=== PATIENT | male | born 1995 | race Caucasian/White ===

== ENCOUNTER 2022-09-15 08:28 | Emergency (ER) | payer SELFPAY ==
[2022-09-15 08:29] VITALS: BP 148/77; PULSE 60; RESP 14; TEMP 36.6; O2SAT 98; BMI 30.9
[2022-09-15 08:47] VITALS: O2SAT 97
--- NOTE | 2022-09-15 08:48 | EX.ED.DYSGE1 ---
HPI History of Present Illness Chief Complaint: Chest Pain Informant: patient Narrative Narrative: Patient presents with an episode of chest pain and tingling. Patient states that last night he had a couple shots of whiskey which he normally does not have. About an hour to hour and a half later he suddenly felt tingling in his hands and face. He states he felt hot and cold in his arms. He had pain over the left side of his chest. He states he felt scared and as if he might . He is thinks he fell down. But he did not hurt himself. He then was able to get to bed. He had a little bit of that this morning but he feels better now. He states he is under a lot of stress recently. He is not sure if this causes it. He also has a history of ulcer disease and GERD but is not on current medicines and has been having a lot of reflux. He has no recent travel surgery immobilization personal family history of DVT or PE. No known risk factor for heart disease other than smoking cigarettes. He does smoke some marijuana in addition. He has had symptoms like this in the past but has not had them evaluated. PFSH PFS Medical History no medical history Home Medications hydroxyzine pamoate 25 mg capsule 50 mg PO TID PRN PRN Anxiety #30 CAPSULES 09/15/22 [Rx Last Taken Unknown] Allergy/AdvReac Type Severity Reaction Status Date / Time No Known Allergies Allergy Verified 09/15/22 08:29 Surgical History no surgical history Social History Smoking Status: Current every day smoker tobacco type: cigarettes ROS ROS ED ROS Narrative A complete review of systems was performed and is negative except as documented in the history of present illness. Some specific details below. Constitutional: No recent fevers or chills. No malaise. EYE: No discharge, visual complaints, or pain. ENT: No difficulty swallowing. No swelling. No pain. He has been having a lot of reflux symptoms recently. CV: See history of present illness. Respiratory: See history of present illness. Dyspnea was a mild component. GI: No abdominal pain. No nausea vomiting diarrhea. No blood in stool. : No frequency dysuria or hematuria. Musculoskeletal: No recent trauma. No pains. No swelling. Skin: No rash. Nondiaphoretic. Neuro: No weakness but he did report tingling in all of his extremities. He also reported a hot and cold feeling. He also reports increased anxiety and stress recently. Endocrine: No polyuria or polydipsia. EXAM Physical Exam Narrative Exam Narrative: CONSTITUTIONAL: Patient is nontoxic in appearance. The patient looks comfortable. Work of breathing looks normal. HEENT: No notable trauma. Mucous membranes moist. No sinus tenderness. No indication of pain with swallowing. EYES: No conjunctival injection. No proptosis. NECK:No JVD. No stridor. CARDIOVASCULAR: Regular rate. Regular rhythm. No notable murmur. No JVD. Minimal chest wall tenderness. RESPIRATORY: No respiratory distress. Breathing is unlabored. No wheezes. No rhonchi. No rales. No pain with a deep breath. No chest wall tenderness. GASTROINTESTINAL: Not distended. Bowel sounds are normal. No tenderness. No guarding. No rebound. No palpable mass. No bruit is heard. GENITOURINARY: No tenderness over the bladder. No CVA tenderness. MUSCULOSKELETAL: Atraumatic. No peripheral edema. No cord. No tenderness along the deep venous system. No asymmetry. No distended veins. NEUROLOGICAL: Patient is alert and appropriate. No focal deficit noted. SKIN: No noted rashes. No diaphoresis. PSYCHIATRIC: Patient is very anxious. He has a lot of trouble not speaking. He has some mild pressured speech. No hallucinations. There is a strong family history of schizophrenia but I do not get any indication that he has that. But he does seem quite anxious and admits to feeling quite anxious. Const Vital Signs: 09/15/22 08:29 09/15/22 08:37 09/15/22 08:47 Temperature 98 F Temperature Source Temporal Pulse Rate 60 Respiratory Rate 14 Respiratory Effort Normal Non-Labored Respiratory Pattern Normal Blood Pressure 148/77 H Blood Pressure Mean 100 Pulse Ox 98 97 Oxygen Delivery Method Room Air Room Air MDM MDM MDM Narrative Medical decision making narrative: My independent interpretation of the patient's single view to image chest x-ray shows no acute process. Final reading by radiology is similar. Patient CBC shows a minimal nonspecific elevation of his white count to 11.4 but is otherwise normal. Patient's electrolytes show no marked abnormalities. Patient's troponin is negative despite having symptoms over 12 hours ago. I think patient can go home. He admits to significant stress and anxiety recently. There may be a component of GERD also. He will get over the counter meds for GERD and we discussed these. I will write for some hydroxyzine to take on a as needed basis. I encouraged follow-up with primary physician and will refer him to 1. I think he is appropriate for discharge. He is PERC negative and asymptomatic. Lab Data Attestation: I reviewed the patient's lab results. Labs: Laboratory Results - last 24 hr 09/15/22 09/15/22 09:00 09:00 WBC 11.4 H RBC 5.52 Hgb 16.1 Hct 46.6 MCV 84.4 MCH 29.2 MCHC 34.5 RDW Std Deviation 36.6 RDW Coeff of Cyrus 12.0 Plt Count 312 MPV 9.4 Immature Gran % (Auto) 0.900 Neut % (Auto) 72.7 H Lymph % (Auto) 17.3 L [place] % (Auto) 7.4 Eos % (Auto) 0.8 Baso % (Auto) 0.9 Absolute Neuts (auto) 8.3 H Absolute Lymphs (auto) 1.98 Nucleated RBC % 0 Sodium 141 Potassium 4.1 Chloride 110 H Carbon Dioxide 25.0 Anion Gap 6 BUN 15 Creatinine 1.08 Estim Creat Clear Calc 110.39 Est GFR (MDRD) Af Amer 106 Est GFR (MDRD) Non-Af 88 BUN/Creatinine Ratio 13.9 Glucose 103 Calcium 9.7 Troponin I High Sens 9 Radiography Diagnostic Testing: Clinical Impression(s) from Imaging Studies Chest X-Ray 09/15/22 09:11 IMPRESSION: Normal x-ray examination of the chest. Electronically Signed: Joseph Dickey MD at 9:31 EDT , EKG Initial EKG: Comments: My independent interpretation of the patient's EKG done for chest pain shows a normal sinus rhythm with overall rate of 65. Mild baseline variation but no acute ST elevation or depression. [place] interval, QRS duration and QTc are normal. Discharge Plan Triage Chief Complaint: Chest Pain ED Provider: Jr Delacruz Dx/Rx/DC Orders Clinical Impression: Chest pain, History of anxiety, History of gastroesophageal reflux (GERD) Instructions: ED Chest Pain, Uncertain Cause Prescriptions: New hydroxyzine pamoate [hydroxyzine pamoate] 25 mg capsule 50 mg PO TID PRN PRN (Reason: Anxiety) Qty: 30 0RF Primary Care Provider: Care Physician,No Primary Referrals: Itzel Rush MD [Med Staff - Senior Resident Care Director] - 3-5 Days Lupe Cerna MD [Non-Staff] - Disposition Disposition: Home, Self Care
[2022-09-15 09:09] LABS: Absolute Lymphocyte Count 1.98 X10^3/uL (0.83-4.51); Absolute Neutrophil Count 8.3 X10^3/uL (2.0-7.7); Basophil% 0.9 % (0-1); Eosinophil# 0.09 X10^3/uL; Eosinophils% 0.8 % (0-5); Hematocrit 46.6 % (40-54); Hemoglobin 16.1 g/dL (13.0-16.5); Lymphocyte # 1.98 X10^3/ul (0.83-4.51); Lymphocyte % 17.3 % (19-41); Mean Corp Hgb Conc 34.5 g/dL (32-36); Mean Corpuscular Hgb 29.2 pg (27.0-32.0); Mean Corpuscular Volume 84.4 fL (80-94); Mean Platelet Vol. 9.4 fl (6.2-12.0); Monocyte# 0.85 X10^3/uL; Monocyte% 7.4 % (0-10); NRBC Flagged by Analyzer 0 % (0-5); Neutrophil % 72.7 % (47-70); Platelet Count 312 K/mm3 (150-450); RBC Distribution Width SD 36.6 fl (35.1-43.9); Red Blood Count 5.52 M/mm3 (4.6-6.2); White Blood Count 11.4 K/mm3 (4.4-11.0)
--- NOTE | 2022-09-15 09:11 | RAD_ITS ---
STUDY: X-RAY CHEST REASON FOR EXAM: Male, 27 years old. Chest pain TECHNIQUE: Single AP portable view of the chest. COMPARISON: None. FINDINGS: EKG electrodes are seen. The lungs are clear and expanded. There is no demonstrated pleural abnormality. Normal size heart. Normal mediastinum and brenda. Normal visualized pulmonary arteries. Normal visualized aortic arch and descending thoracic aorta. Normal visualized thoracic spine. Normal visualized ribs, clavicles, and shoulders. There is no demonstrated abnormality of the visualized soft tissue structures of the upper abdomen. RAD/Chest 1 View (Portable) IMPRESSION: Normal x-ray examination of the chest. Electronically Signed: Joseph Dickey MD at 9:31 EDT ,
[2022-09-15 09:25] LABS: Anion Gap 6 (5-15); BUN 15 mg/dL (7-18); BUN/Creat Ratio 13.9 RATIO (10-20); Calcium,Total 9.7 mg/dL (8.5-10.1); Chloride 110 mmol/L (98-107); Creatinine, Serum 1.08 mg/dL (0.70-1.30); EST Glomerular Filtration Rate 88 mL/min (>60); Est Glom Filt Rate - Afr Amer 106 mL/min (>60); Estimated Creatinine Clearance 110.39 ml/min; Glucose 103 mg/dL (74-106); Potassium 4.1 mmol/L (3.5-5.1); Sodium Level 141 mmol/L (136-145); Troponin-I HS 9 pg/mL (3.0-78.0)
[2022-09-15 10:28] VITALS: BP 119/77; PULSE 67; RESP 22; O2SAT 96
[2022-09-15 10:44] VITALS: BP 143/77; PULSE 76; RESP 15; TEMP 36.8; O2SAT 97
--- NOTE | 2022-09-15 15:39 | CM.ED ---
Social Work SW introduced self and role. Discussed PCP with patient who reports he does not have one. Patient provided with PCP resources. Brandie Tao [employer], [employer] DRAFTER
== END 2022-09-15 10:46 | disposition home or self-care (01) ==
PROVIDERS: Emergency Provider Emergency Medicine; Visit Provider Emergency Medicine
DX: R07.9 Chest pain, unspecified (principal); K21.9 Gastro-esophageal reflux disease without esophagitis; F17.210 Nicotine dependence, cigarettes, uncomplicated; F41.9 Anxiety disorder, unspecified
CPT/HCPCS: 71045; 80048; 84484; 85025; 93005; 99284; A4216

== ENCOUNTER 2023-06-02 12:25 | Emergency (ER) | payer SELFPAY ==
[2023-06-02 12:25] VITALS: BP 138/92; PULSE 87; RESP 16; TEMP 36.6; O2SAT 97; BMI 31.1
--- NOTE | 2023-06-02 13:05 | EX.ED.DYSGE1 ---
HPI History of Present Illness Chief Complaint: Abscess Informant: patient Narrative Narrative: Patient is 27-year-old male with no past medical history presenting with pain, swelling and redness to the right axilla. He states about 3 to 4 days ago he felt a hard lump and squeezed it. He felt it pop but nothing came out from the outside it almost feels like it split. Since then he has had increased redness and swelling to the area. Denies associated fever or chills. Has a history of MRSA or prior abscess. Denies any drainage. Did not take any meds prior to arrival. Some increased pain so came in for further evaluation. No other complaints or concerns at this time. PFSH PFSH Home Medications doxycycline hyclate 100 mg tablet 100 mg PO BID #14 tabs 06/02/23 [Rx Last Taken Unknown] ibuprofen 600 mg tablet 600 mg PO Q6H PRN PRN pain #20 TABLETS 06/02/23 [Rx Last Taken Unknown] Allergy/AdvReac Type Severity Reaction Status Date / Time No Known Allergies Allergy Verified 06/02/23 12:27 Social History Smoking Status: Current every day smoker tobacco type: cigarettes ROS ROS ED Constitutional Constitutional ED: Denies chills or fever(s) Cardiovascular Cardiovascular: Denies chest pain Gastrointestinal Gastrointestinal: Denies nausea or vomiting Musculoskeletal Musculoskeletal: Denies arthralgias or myalgias Integumentary Reports abscess Neurologic Neurologic: Denies headache(s) EXAM Physical Exam Const Vital Signs: 06/02/23 12:25 06/02/23 13:54 Temperature 97.8 F 97.9 F Temperature Source Temporal Pulse Rate 87 81 Respiratory Rate 16 22 H Blood Pressure 138/92 H 139/91 H Blood Pressure Mean 107 107 Pulse Ox 97 100 Oxygen Delivery Method Room Air Positive well nourished and well developed General Appearance ED: well developed and NAD HEENT Reports moist mucous membranes Neck supple Chest Wall inspection of chest normal Resp normal respiratory effort and clear to auscultation bilaterally Cardio regular rate and regular rhythm Extremity normal to inspection General Extremety ED: Negative for edema General Extremity: Negative for edema Neuro oriented x3 Sensorium / Orientation: alert Psych mental status grossly normal Skin Skin Narrative: Abscess noted to the right axilla which is approximate 4 centers by 3 cm with central fluctuance. No spontaneous drainage. There is surrounding erythema that tracks distally down the underarm approximate centimeters by 5 cm. No associated warmth of this erythema. Mild associated tenderness to palpation. No crepitus appreciated. MDM MDM MDM Narrative Medical decision making narrative: Patient valuated for pain, redness and swelling to the right axilla. Physical exam consistent with abscess. Question if there is some early cellulitic changes to the proximal arm. Will perform I&D, see procedure note. Because of the location and the other skin changes will place patient on doxycycline. First dose given in the ER as well as a dose of Motrin for pain control. Procedures Other Procedures Procedure(s): Incision and drainage Area cleansed with an alcohol prep. Anesthetized with 2 cc of 1% lidocaine without epinephrine. Once adequate analgesia achieved #11 blade used to make a 1 cm incision over the area of maximal fluctuance. Patient had good amount of purulent and bloody drainage. All the purulence is expressed and then the abscess explored with hemostats to open up any potential loculations. Once all purulence was expressed the abscess is then irrigated with saline. Left open to heal by secondary intent. Bleeding is controlled with direct pressure. Patient tolerated procedure well with no immediate complications. No packing is placed. Discharge Plan Triage Chief Complaint: Abscess ED Provider: Rachel Fry Dx/Rx/DC Orders Clinical Impression: Abscess of axilla, right Instructions: ED Abscess Incision And Drainage Prescriptions: New doxycycline hyclate 100 mg tablet 100 mg PO BID Qty: 14 0RF ibuprofen 600 mg tablet 600 mg PO Q6H PRN PRN (Reason: pain) Qty: 20 0RF Primary Care Provider: Care Physician,No Primary Referrals: Noemi Guajardo MD [Med Staff - Active Staff] - 1 Week if not improving Care Physician,No Primary [Primary Care Provider] - Disposition Disposition: Home, Self Care Discharge Date/Time: 06/02/23 13:55
[2023-06-02] MEDS: Ibuprofen 600 MG Tablet PO (13:11)
[2023-06-02] MEDS: Lidocaine 1% (20 ml mdv) 20 ML Vial INFILT (13:11)
[2023-06-02] MEDS: Doxycycline 100 MG CAPSULE PO (13:11)
--- OUTSIDE RECORDS SUMMARY | 2023-06-02 13:38 | XMS RPT_ITS | CCD ---
Author Name Unknown Address [address] [facility] [address] [place] [address] Organization [facility] Care Team Providers Care Night Stocker Name Role Phone Unavailable Primary Care Provider Unavailabl e Medications Completed/Discontinued Medications Medication Drug Class(es) Dates Sig (Normalized) Sig (Original) ondansetron 4 mg disintegrating oral tablet (2 sources) Serotonin-3 Receptor Antagonist Start: 02-26-2020 End: 02-26-2020 ondansetron (ZOFRAN-ODT) disintegrating tablet 4 mg Problems Active Problems Problem Classification Problem Date Documented Da te Episodic/Chronic Immunizations and screening for infectious disease (1 source) Contact with and (suspected) exposure to other viral communicable diseases; Translations: [Suspected COVID-19 virus infection] Episodic Past or Other Problems Problem Classification Problem Date Documented Da te Episodic/Chronic Unclassified (1 source) R Arm Numbness X 3 Onset: 04-15-2022 Results Test Name Value Interpretation Reference Range Facil ity Vital Signs Date Time Vital Sign Value Performing Clinician Faci lity 02-26-2020 17:51-0500 BMI (Body Mass Index) 32.55 kg/m2 Erik Pimentel [facility], [place] 02-26-2020 17:51-0500 [facility] [place] 02-26-2020 17:51-0500 Height 182.9 cm [facility] [place] 02-26-2020 17:48-0500 Body Temperature 98.8 [degF] [facility] [place] 02-26-2020 17:48-0500 BP Diastolic 83 mm[Hg] [facility] [place] 02-26-2020 17:48-0500 BP Systolic 142 mm[Hg] [facility] [place] 02-26-2020 17:48-0500 Pulse (Heart Rate) 87 /min Erik Pimentel [place], [place] 02-26-2020 17:48-0500 Pulse Oximetry 97 % Erik Pimentel [place], [place] 02-26-2020 17:48-0500 Respiratory Rate 18 /min Erik Pimentel [place], [place] Encounters Encounter Date Encounter Type Care Provider Facility Start: 04-15-2022 End: 04-15-2022 Emergency department patient visit [facility] Start: 02-26-2020 End: 02-26-2020 Emergency department patient visit Erik Bee Margarito Work Phone: [facility] Emergency Dept Procedures Date Procedure Procedure Detail Performing Clinician Start: 02-26-2020 Radiologic exam ches t single view Erik Bee Maragrito Work Phone: Plan of Treatment Date Care Activity Detail Author Start: 12-17-2019 Influenza vaccination Flu vaccine (# 1) [place], [place] End: 02-26-2020 COVID-19 COVID-19 Lab Routine One Time for 1 Occurrences starting 02/26/2020 until 02/26/2020 [place] Social History Date Type Detail Facility Start: 02-26-2020 Tobacco smoking stat us [facility] Unknown if ever smoked [place], [place] Start: 02-26-2020 Alcohol intake Current drinke r of alcohol (finding) [place], [place] Sex Assigned At Not on file [place] Exposure to SARS-CoV -2 (event) Not sure [place] Discharge Instructions * Attachments The following attachments cannot be sent through Care Everywhere. * Viral Infections (Cymraes) documented in this encounter Assessments Diagnosis Suspected COVID-19 virus infection Summary Purpose Family History No Family History Records FoundNo Family History Records FoundNo Family History Records Found Advance Directives No Advanced Directives Records FoundNo Advanced Directives Records FoundNo Advanced Directives Records Found Additional Source Comments Reason for Visit (unrecogniz ed section and content) (unrecognized sect ion and content) No Status Records FoundNo Status Records FoundNo Status Records Found INFORMATION SOURCE (unrecogn ized section and content) DATE CREATED AUTHOR AUTHOR'S ORGANIZ ATION 12/27/2020 [facility] DATE CREATED AUTHOR AUTHOR'S ORGANIZ ATION 04/16/2022 [facility] FOR RECORDS PERTAINING TO PATIENTS WHO ARE OR HAVE BEEN ENROLLED IN A CHEMICAL DEPENDENCY/SUBSTANCEABUSE PROGRAM, SOME INFORMATION MAY BE OMITTED. This clinical summary was aggregated from multiple sources. Caution should be exercised in using it in the provision of clinical care. This summary normalizes information from multiple sources, and as a consequence, information in this document may materially change the coding, format and clinical context of patient data. In addition, data may be omitted in some cases. CLINICAL DECISIONS SHOULD BE BASED ON THE PRIMARY CLINICAL RECORDS. [facility]. provides no warranty or guarantee of the accuracy or completeness of information in this document.
[2023-06-02 13:54] VITALS: BP 139/91; PULSE 81; RESP 22; TEMP 36.6; O2SAT 100
== END 2023-06-02 13:55 | disposition home or self-care (01) ==
LOC: ED 13:20
PROVIDERS: Emergency Provider Emergency Medicine; Visit Provider Emergency Medicine
DX: L02.411 Cutaneous abscess of right axilla (principal); F17.210 Nicotine dependence, cigarettes, uncomplicated
CPT/HCPCS: 10060; 99282

== ENCOUNTER 2023-10-12 20:49 | Emergency (ER) | payer SELFPAY ==
[2023-10-12 20:50] VITALS: BP 152/111; PULSE 87; RESP 18; TEMP 36.7; O2SAT 97; BMI 31.6
--- NOTE | 2023-10-12 21:16 | EX.ED.DYSGE1 ---
HPI <ARDEN Montiel - Last Filed: 10/12/23 22:09> History of Present Illness Chief Complaint: Flank Pain Narrative Narrative: Patient is a 28-year-old male with no significant medical history. Patient does not take any medications daily. Patient states that for the last 2 days, has been having significant pain to his right upper abdomen. Patient dates the pain comes and go but however when it arrives, it is a squeezing sharp sensation. Pay states over the last 2 days, he has been eating a lot of fast food and his diet is not the best at this time. Patient states that the pain became unbearable today after work. He started looking online and became more nervous and is here for evaluation. PFSH <ARDEN Montiel - Last Filed: 10/12/23 22:09> [facility] Home Medications ?Medication ?Instructions ?Recorded ?Last Taken ?Type naproxen 500 mg tablet 500 mg PO BID PRN Abdominal Pain 10/12/23 Unknown Rx #20 tabs ondansetron 4 mg disintegrating 4 mg PO Q6H PRN PRN Nausea #10 tabs 10/12/23 Unknown Rx tablet Allergy/AdvReac Type Severity Reaction Status Date / Time No Known Allergies Allergy Verified 10/12/23 20:53 Social History Smoking Status: Current every day smoker tobacco type: cigarettes ROS <ARDEN Montiel - Last Filed: 10/12/23 22:09> ROS ED ROS Narrative Constitutional: Negative for fever, chills, weight loss, weakness Eyes: Negative for vision loss, vision change, double vision ENT: Negative for any sore throat, ear pain, congestion Cardiovascular: Negative for any chest pain, tightness, palpitations Respiratory: Negative for any cough, sputum production, hemoptysis, dyspnea, dyspnea on exertion, orthopnea Gastrointestinal: Negative for any nausea, vomiting, diarrhea, constipation, blood in stool, blood in vomit. Positive right upper quadrant abdominal pain : Negative for any urinary frequency, dysuria, retention, blood in urine Muscle skeletal: Negative for any neck pain, back pain Neurological: Negative for any headache, syncope, dizziness Skin: Negative for any rashes, itching, abrasions, lacerations Psychiatric: Negative for any depression, stress, suicidal ideation, homicidal ideation. Positive for anxiety Hematologic: Negative for any excessive bruising, easy bleeding EXAM <ARDEN Montiel - Last Filed: 10/12/23 22:09> Physical Exam Narrative Exam Narrative: Vital signs reviewed. Patient does appear anxious, patient is in no obvious respiratory distress. HEET: Head normocephalic atraumatic, TMs clear bilaterally. Posterior pharynx is clear, moist mucous membranes. Nares clear bilaterally. Neck: Supple with no lymphadenopathy or tenderness. No signs of meningismus. Cardiac: Regular rate and rhythm no murmurs gallops or rubs, equal peripheral pulses bilaterally. Respiratory: Lungs clear to auscultation bilaterally. No chest tenderness. Abdomen: Soft, nondistended. No abdominal bruit or pulsatile masses. No hepatosplenomegaly. Patient does have pain just under the rib cage more lateral on the right side. Patient also has pain to the right mid abdomen. Active bowel sounds in all quadrants. Extremities: No peripheral edema, no signs of gross trauma or deformity. Active full range of motion of all extremities. Neuro: Cranial nerves II through XII intact, no focal neurological deficits. Skin: Clean dry and intact with no rash, purpura, petechiae, vesicles or pustules. Backs/flank: No CVA tenderness, no midline spinal tenderness, no deformity. Psych: Normal mood and affect. No SI, HI or acute psychosis. Const Vital Signs: 10/12/23 20:50 10/12/23 22:50 10/12/23 23:04 Temperature 98.1 F 97.6 F L Temperature Source Temporal Pulse Rate 87 80 80 Respiratory Rate 18 17 17 Blood Pressure 152/111 H 145/80 H 145/80 H Blood Pressure Mean 124 101 101 Pulse Ox 97 99 98 Oxygen Delivery Method Room Air Room Air <Dr. Colt Condon DO - Last Filed: 10/12/23 23:08> Physical Exam Const Vital Signs: 10/12/23 20:50 10/12/23 22:50 10/12/23 23:04 Temperature 98.1 F 97.6 F L Temperature Source Temporal Pulse Rate 87 80 80 Respiratory Rate 18 17 17 Blood Pressure 152/111 H 145/80 H 145/80 H Blood Pressure Mean 124 101 101 Pulse Ox 97 99 98 Oxygen Delivery Method Room Air Room Air MDM <ARDEN Montiel - Last Filed: 10/12/23 22:09> [facility] Lab Data Labs: Laboratory Results - last 24 hr 10/12/23 10/12/23 21:15 21:20 WBC 9.9 RBC 5.52 Hgb 16.0 Hct 46.5 MCV 84.2 MCH 29.0 MCHC 34.4 RDW Std Deviation 35.3 RDW Coeff of Cyrus 11.6 Plt Count 355 MPV 9.3 Immature Gran % (Auto) 0.500 Neut % (Auto) 57.0 Lymph % (Auto) 30.3 [place] % (Auto) 9.9 Eos % (Auto) 1.2 Baso % (Auto) 1.1 H Absolute Neuts (auto) 5.6 Absolute Lymphs (auto) 2.99 Nucleated RBC % 0 Sodium 138 Potassium 3.6 Chloride 106 Carbon Dioxide 26.0 Anion Gap 6 BUN 13 Creatinine 1.16 Estim Creat Clear Calc 120.30 Est GFR (MDRD) Af Amer 97 Est GFR (MDRD) Non-Af 80 BUN/Creatinine Ratio 11.2 Glucose 102 Calcium 9.7 Total Bilirubin 1.70 H AST 27 ALT 84 H Alkaline Phosphatase 68 Total Protein 8.1 Albumin 4.2 Globulin 3.9 Albumin/Globulin Ratio 1.1 Lipase 35 Urine Color Yellow Urine Clarity Clear Urine pH 6.0 Ur Specific [place] 1.025 Urine Protein Negative Urine Glucose (UA) Normal Urine Ketones Negative Urine Occult Blood 25 H Urine Nitrite Negative Urine Bilirubin Negative Urine Urobilinogen Normal Ur Leukocyte Esterase Negative Urine RBC 0 SEEN Urine WBC 0 SEEN Ur Squamous Epith Cells 0 SEEN Urine Bacteria 0 SEEN Urine Mucus 0 SEEN Treatment and Re-Evaluation :: Differential diagnosis includes however is not limited to: Acute cholecystitis, pyloric colic, hepatomegaly, abdominal wall strain Patient appears to be in no obvious respiratory distress vital signs are stable, patient appears nontoxic. Patient is slightly anxious, patient has pain to the right upper quadrant, right under the right rib cage. Patient received abdominal workup including CBC CMP lipase, patient received a right upper quadrant ultrasound. Medicated with IV fluids, Zofran, Toradol. Patient will be reevaluated. Patient's CBC was unremarkable, chemistry showed normal kidney function, patient's total bilirubin was 1.7, ALT slightly elevated 4 lipase was negative. <Dr. Colt Condon DO - Last Filed: 10/12/23 23:08> MDM History & Record Review Discussion w/independent historian: Patient and Family Lab Data Attestation: I reviewed the patient's lab results. Labs: Laboratory Results - last 24 hr 10/12/23 10/12/23 21:15 21:20 WBC 9.9 RBC 5.52 Hgb 16.0 Hct 46.5 MCV 84.2 MCH 29.0 MCHC 34.4 RDW Std Deviation 35.3 RDW Coeff of Cyrus 11.6 Plt Count 355 MPV 9.3 Immature Gran % (Auto) 0.500 Neut % (Auto) 57.0 Lymph % (Auto) 30.3 [place] % (Auto) 9.9 Eos % (Auto) 1.2 Baso % (Auto) 1.1 H Absolute Neuts (auto) 5.6 Absolute Lymphs (auto) 2.99 Nucleated RBC % 0 Sodium 138 Potassium 3.6 Chloride 106 Carbon Dioxide 26.0 Anion Gap 6 BUN 13 Creatinine 1.16 Estim Creat Clear Calc 120.30 Est GFR (MDRD) Af Amer 97 Est GFR (MDRD) Non-Af 80 BUN/Creatinine Ratio 11.2 Glucose 102 Calcium 9.7 Total Bilirubin 1.70 H AST 27 ALT 84 H Alkaline Phosphatase 68 Total Protein 8.1 Albumin 4.2 Globulin 3.9 Albumin/Globulin Ratio 1.1 Lipase 35 Urine Color Yellow Urine Clarity Clear Urine pH 6.0 Ur Specific [place] 1.025 Urine Protein Negative Urine Glucose (UA) Normal Urine Ketones Negative Urine Occult Blood 25 H Urine Nitrite Negative Urine Bilirubin Negative Urine Urobilinogen Normal Ur Leukocyte Esterase Negative Urine RBC 0 SEEN Urine WBC 0 SEEN Ur Squamous Epith Cells 0 SEEN Urine Bacteria 0 SEEN Urine Mucus 0 SEEN Treatment and Re-Evaluation :: Differential diagnosis includes however is not limited to: Acute cholecystitis, pyloric colic, hepatomegaly, abdominal wall strain Patient appears to be in no obvious respiratory distress vital signs are stable, patient appears nontoxic. Patient is slightly anxious, patient has pain to the right upper quadrant, right under the right rib cage. Patient received abdominal workup including CBC CMP lipase, patient received a right upper quadrant ultrasound. Medicated with IV fluids, Zofran, Toradol. Patient will be reevaluated. Patient's CBC was unremarkable, chemistry showed normal kidney function, patient's total bilirubin was 1.7, ALT slightly elevated 4 lipase was negative. Update: Patient's history and physical exam was reviewed and I performed my own independent history and physical exam. At this time he has minimal pain in the right upper quadrant but he is extremely anxious. He will let me finish reviewing the findings with him before he cuts me off and asked me to tell him what the results are. He gets himself noticeably worked up emotionally when we talk about follow-up. Patient's gallbladder returned with a 3 mm gallbladder wall but without pericholecystic fluid or gallstones. CBD within normal limits. patient was reassessed and we went over the patient's labs and ultrasound findings. My recommendation that he follow-up with primary care with general surgery. Especially if he continues to have symptomatology. He notes that he needs to improve his diet and we talked about dietary changes. He does not wish to have any pain medication at home for personal reasons. I can write for some anti-inflammatories as well as some Zofran. Discharge Plan Triage Chief Complaint: Flank Pain ED Midlevel Provider: Andres Jay ED Provider: Colt Condon Dx/Rx/DC Orders Clinical Impression: Abdominal pain, Biliary colic Instructions: HIDA Scan Prescriptions: New ondansetron 4 mg tablet,disintegrating 4 mg PO Q6H PRN PRN (Reason: Nausea) Qty: 10 0RF naproxen 500 mg tablet 500 mg PO BID PRN (Reason: Abdominal Pain) Qty: 20 0RF Stand Alone Forms: ED Work / School Excuse Primary Care Provider: Care Physician,No Primary Referrals: Noemi Guajardo MD [Med Staff - Active Staff] - As soon as possible Care Physician,No Primary [Primary Care Provider] - Print Language: Congolese Disposition Disposition: Home, Self Care Discharge Date/Time: 10/12/23 23:05
--- NOTE | 2023-10-12 21:17 | US_ITS ---
STUDY: ABDOMINAL ULTRASOUND - RIGHT UPPER QUADRANT REASON FOR VISIT: Male, 28 years old ABD PAIN TECHNIQUE: Ultrasound evaluation of the right upper quadrant was performed with real-time and static moraes-scale imaging. TECHNICAL QUALITY: Adequate. COMPARISON: None. FINDINGS: Liver: The liver measures 15.1 cm. There is normal echogenicity of the liver. The bile ducts are within normal limits. There is hepatic color flow. The direction of portal flow is hepatopetal. There is no demonstrated mass lesion. Gallbladder: Normal distended gallbladder. The gallbladder wall measures 3 mm. There is a negative sonographic Rodriguez''s sign. There is no pericholecystic fluid. There are no gallstones. Common Bile Duct (C.B.D.): The common bile duct measures 4 mm. Pancreas: Not visualized due to bowel gas producing artifact. Right Kidney: Normal size of the right kidney. The right kidney measures 10.7 x 5.4 x 4.8 cm. Normal renal cortex. The right cortex measures 1.6 cm. There is no demonstrated renal mass or cyst. There is no right hydronephrosis. US/Gallbladder IMPRESSION: Thick-walled gallbladder without stones. If concern for gallbladder disease HIDA scan with CCK recommended. Nonvisualization of pancreas which can be better assessed with CAT scan if clinically warranted Electronically Signed: Kojo Parsons MD at 22:12 EDT ,
[2023-10-12] MEDS: Ketorolac 15 MG/ML Vial IV (21:21)
[2023-10-12] MEDS: 0.9% Normal Saline (1000mL) 1,000 ML 999 ML IV (21:21)
[2023-10-12] MEDS: Ondansetron 4 MG/2 ML Vial IV (21:22)
[2023-10-12 21:31] LABS: Bacteria 0 SEEN /hpf (None Seen); Mucous, Urine 0 SEEN /hpf (<or=2+); Red Blood Cells-Urine 0 SEEN /hpf (0-5); Squamous Epithelial Cells - UA 0 SEEN /hpf (0-5); White Blood Cells 0 SEEN /hpf (0-5)
[2023-10-12 21:32] LABS: Absolute Lymphocyte Count 2.99 X10^3/uL (0.83-4.51); Absolute Neutrophil Count 5.6 X10^3/uL (2.0-7.7); Basophil# 0.11 X10^3/uL; Basophil% 1.1 % (0-1); Eosinophil# 0.12 X10^3/uL; Eosinophils% 1.2 % (0-5); Hematocrit 46.5 % (40-54); Lymphocyte # 2.99 X10^3/ul (0.83-4.51); Lymphocyte % 30.3 % (19-41); Mean Corp Hgb Conc 34.4 g/dL (32-36); Mean Corpuscular Volume 84.2 fL (80-94); Mean Platelet Vol. 9.3 fl (6.2-12.0); Monocyte# 0.98 X10^3/uL; Monocyte% 9.9 % (0-10); NRBC Flagged by Analyzer 0 % (0-5); Neutrophil # 5.61 X10^3/uL (2.7-7.7); Platelet Count 355 K/mm3 (150-450); RBC Distribution Width CV 11.6 % (11.6-14.6); RBC Distribution Width SD 35.3 fl (35.1-43.9); Red Blood Count 5.52 M/mm3 (4.6-6.2); White Blood Count 9.9 K/mm3 (4.4-11.0)
[2023-10-12 21:33] LABS: Color, Urine Yellow (Yellow); Glucose, Dipstick Normal (Normal); Ketone-Dipstick Negative (Negative); Leukocyte Esterase-Dipstick Negative /ul (Negative); Nitrite-Dipstick Negative (Negative); Occult Blood-Urine 25 /ul (Negative); Protein-Dipstick Negative (Negative); Specific Gravity, Urine 1.025 (1.002-1.030); Urine Bilirubin Dipstick Negative (Negative); Urine Clarity Clear (Clear); Urine Urobilinogen Normal (Normal)
[2023-10-12 22:02] LABS: ALB/GLOB Ratio 1.1 RATIO (0.9-2.4); AST(SGOT) 27 U/L (15-37); Alanine Aminotransfer ALT/SGPT 84 U/L (16-61); Albumin, Serum 4.2 g/dL (3.2-5.0); Alkaline Phosphatase 68 U/L (45-117); Anion Gap 6 (5-15); BUN 13 mg/dL (7-18); BUN/Creat Ratio 11.2 RATIO (10-20); Calcium,Total 9.7 mg/dL (8.5-10.1); Chloride 106 mmol/L (98-107); Creatinine, Serum 1.16 mg/dL (0.70-1.30); EST Glomerular Filtration Rate 80 mL/min (>60); Est Glom Filt Rate - Afr Amer 97 mL/min (>60); Globulin 3.9 g/dL (2.2-4.2); Glucose 102 mg/dL (74-106); Lipase 35 U/L (13-75); Potassium 3.6 mmol/L (3.5-5.1); Protein, Total 8.1 g/dL (6.4-8.2); Sodium Level 138 mmol/L (136-145)
[2023-10-12 22:50] VITALS: BP 145/80; PULSE 80; RESP 17; O2SAT 99
[2023-10-12 23:04] VITALS: BP 145/80; PULSE 80; RESP 17; TEMP 36.4; O2SAT 98
== END 2023-10-12 23:05 | disposition home or self-care (01) ==
PROVIDERS: Nurse Practitioner; Emergency Provider Emergency Medicine; Visit Provider Emergency Medicine
DX: K80.50 Calculus of bile duct without cholangitis or cholecystitis without obstruction (principal); F17.210 Nicotine dependence, cigarettes, uncomplicated
CPT/HCPCS: 76705; 80053; 81001; 83690; 85025; 96361; 96374; 96375; 99283; J7030; A4216; J2405

== ENCOUNTER → 2023-10-31 | Outpatient (CLI) | payer SELFPAY ==
--- NOTE | 2023-10-31 09:43 | NM_ITS ---
CLINICAL: 28-year-old male with history of right upper quadrant abdominal pain. RADIONUCLIDE HEPATOBILIARY SCINTIGRAPHY COMPARISON: Abdominal ultrasound report 10/12/2023 FINDINGS: Following the intravenous administration of 5.6 mCi of 99m Tc Mebrofenin, hepatobiliary images reveal: 1. Relatively prompt and homogeneous radiopharmaceutical concentration is noted by a normal sized liver. No parenchymal defects are identified. 2. Gallbladder activity is identified at 10 minutes post radiopharmaceutical administration. 3. Small intestinal tract is observed at 15 minutes following radiotracer provision. 4. Washout of the radiopharmaceutical by the hepatic parenchyma appears qualitatively normal. Cholecystokinin (0.02 ug/kg) was administered intravenously over a 30-minute period. The post CCK gallbladder ejection fraction calculated at 20 minutes following Cholecystokinin administration was noted to be 20.0 % (normal greater than 35%). There appears to be trace duodenal-gastric reflux following cholecystokinin administration. [place]/Hepatobilliary Img w/Pharm Int IMPRESSION: 1. ABNORMAL 99m Tc Mebrofenin hepatobiliary imaging examination with Cholecystokinin. A. A gallbladder ejection fraction calculated to be less than 35% following the administration of Cholecystokinin is consistent with the presence of functional hepatobiliary disease (gallbladder and/or sphincter of Oddi dyskinesia) and/or organic hepatobiliary disease (chronic acalculous cholecystitis and/or cystic duct syndrome) in patients with intermediate to high pretest probabilities of hepatobiliary illness. (Rodney Benitez et al, Journal of Nuclear Medicine 32:1695, 1990). B. There appears to be scintigraphic evidence of post CCK subtle duodenal gastric reflux. Electronically Signed: Bernard Chin DO at 11:51 EDT ,
== END | disposition home or self-care (01) ==
PROVIDERS: Referring Provider Surgery; Visit Provider Surgery
DX: K80.50 Calculus of bile duct without cholangitis or cholecystitis without obstruction (principal); R10.9 Unspecified abdominal pain; R93.5 Abnormal findings on diagnostic imaging of other abdominal regions, including retroperitoneum
CPT/HCPCS: 78227; A9537; J2805

== ENCOUNTER 2024-04-03 10:24 | Emergency (ER) | payer MEDICAID, SELFPAY ==
[2024-04-03 10:24] VITALS: BP 132/68; PULSE 97; RESP 16; TEMP 36.3; O2SAT 99; BMI 33.0
--- NOTE | 2024-04-03 10:33 | ED.VIS.CHEST ---
HPI History of Present Illness Chief Complaint: Chest Pain [facility] Medical History Abnormal ultrasound of abdomen Home Medications ?Medication ?Instructions ?Recorded ?Last Taken ?Type naproxen 500 mg tablet 500 mg PO BID PRN Abdominal Pain 10/12/23 Unknown Rx #20 tabs ondansetron 4 mg disintegrating 4 mg PO Q6H PRN PRN Nausea #10 tabs 10/12/23 Unknown Rx tablet omeprazole 20 mg tablet,delayed 20 mg PO DAILY #60 tabs 11/06/23 Unknown Rx release sucralfate 1 gram tablet (Carafate) 1 g PO QACHS #90 tabs 11/06/23 Unknown Rx Allergy/AdvReac Type Severity Reaction Status Date / Time No Known Allergies Allergy Verified 04/03/24 10:26 Family History (Updated 11/06/23 @ 14:22 by Edda Machado) Grandfather Heart disease Grandmother Breast cancer Cancer Social History (Updated 11/06/23 @ 14:22 by Edda Machado) Smoking Status: Former smoker EXAM Physical Exam Const Vital Signs: 04/03/24 10:24 Temperature 97.4 F L Temperature Source Temporal Pulse Rate 97 Respiratory Rate 16 Blood Pressure 132/68 H Blood Pressure Mean 89 Pulse Ox 99 Oxygen Delivery Method Room Air MDM MDM MDM Narrative Medical decision making narrative: HISTORY OF PRESENT ILLNESS: 28-year-old male presents with chest pain. Notes that started yesterday around 7 PM. Notes radiates left arm, shoulder and neck. He further states The patient denies recent surgery in the last 4 weeks or immobilization in the last 3 days, denies previous diagnosis of DVT or PE, hemoptysis, unilateral leg swelling or malignancy with treatment the last 6 months or palliative. No estrogen use noted. Patient denies sudden onset of pain, no tearing sensation, no migratory symptoms, no new numbness, weakness or loss of sensation. Patient denies family history or personal history of Connective tissue disorders (Marfan's Syndrome, Teetee Danlos etc) REVIEW OF SYSTEMS: Pertinent positives: Chest pain Pertinent negatives: [] PHYSICAL EXAM: Nursing triage notes reviewed, Vital signs reviewed Constitutional: please see mdm HENT: MMM Eyes: Pupils equal round and reactive to light, Extraocular muscles intact Neck: No stridor, no JVD, full neck ROM Lungs: Clear to auscultation, No wheezing or rales. No increased work of breathing, no conversational dyspnea, no accessory muscle use, no nasal flaring. No respiratory distress noted Heart: Regular rate and rhythm, No murmurs, No rubs and No gallops, 2+ distal pulses (radial, femoral, posterior tibial) in all extremities Abdomen: Soft, there is no tenderness, rigidity, rebound or guarding, no obvious peritoneal signs, no palpable pulsatile abdominal masses, no auscultated abdominal bruit : No CVAT Extremities: No edema Neuro: No new focal neurological deficits, cranial nerves II through XII intact, 5/5 strength in all present extremities. Intact sensation to light touch in all present extremities, 2+ reflexes bilateral patella tendons. Skin: No rash or lesions noted MEDICAL DECISION MAKING: Chief Complaint: Chest pain External records reviewed: Reviewed prior cardiovascular studies, allergies, problem list, current medications Factors affecting care: GERD Social determinants of health: none [] History obtained from others: none [] Consults: none [] MDM Narrative: Patient was initially hemodynamically stable, afebrile and nontoxic-appearing. I considered the following differential diagnosis: [] ALL IMAGES (IF OBTAINED) HAVE BEEN PERSONALLY REVIEWED AND INTERPRETED BY MYSELF. [] The patient and/or family, caregivers express understanding. The patient and/or family, caregivers agrees with the plan. Shared decision making: I will have a discussion with the patient and or visitors regarding risk/benefits of further testing or admission. They will be made aware of of the risk/benefits inherent in this decision they will be given the opportunity to voice understanding. Total critical care time today provided was at least 0 [] minutes. This excludes separately billable procedures. Critical care time (if documented) is secondary to the patient having high probability of clinically significant/life threatening deterioration in the patient's condition which required my urgent intervention. Impression: [] Dispo: [] This note was generated with Jaypore dictation software. It may contain incorrect words, spelling, and punctuation that were not noted in review of the chart prior to signing. Discharge Plan Triage Chief Complaint: Chest Pain ED Provider: Colt Condon Dx/Rx/DC Orders Prescriptions: No Action omeprazole 20 mg tablet,delayed release (DR/EC) 20 mg PO DAILY Qty: 60 0RF sucralfate [Carafate] 1 gram tablet 1 g PO QACHS Qty: 90 0RF ondansetron 4 mg tablet,disintegrating 4 mg PO Q6H PRN PRN (Reason: Nausea) Qty: 10 0RF naproxen 500 mg tablet 500 mg PO BID PRN (Reason: Abdominal Pain) Qty: 20 0RF Primary Care Provider: Care Physician,No Primary Referrals: Care Physician,No Primary [Primary Care Provider] - Print Language: Bahamian
--- NOTE | 2024-04-03 10:36 | EDS_ITS ---
HPI History of Present Illness Chief Complaint: Chest Pain Informant: patient Narrative Narrative: 28-year-old male presenting to the emergency room with left-sided chest and back pain. Patient states that last night around 1900 hrs. he developed a pressure and discomfort in the left chest going into the left back rating up towards the left neck. It is worse with quick movements and slightly worse with touch. He states that he does not recall any particular injury to age. No nausea vomiting. He notes a chronic cough from smoking. He states he is not currently on any medications. No reported fevers or recent illnesses. He denies any leg weakness or pain. [facility] Medical History Abnormal ultrasound of abdomen Home Medications ?Medication ?Instructions ?Recorded ?Last Taken ?Type naproxen 500 mg tablet 500 mg PO BID PRN Abdominal Pain 10/12/23 Unknown Rx #20 tabs ondansetron 4 mg disintegrating 4 mg PO Q6H PRN PRN Nausea #10 tabs 10/12/23 Unknown Rx tablet omeprazole 20 mg tablet,delayed 20 mg PO DAILY #60 tabs 11/06/23 Unknown Rx release sucralfate 1 gram tablet (Carafate) 1 g PO QACHS #90 tabs 11/06/23 Unknown Rx Allergy/AdvReac Type Severity Reaction Status Date / Time No Known Allergies Allergy Verified 04/03/24 10:26 Family History Grandfather Heart disease Grandmother Breast cancer Cancer Social History Smoking Status: Current every day smoker tobacco type: cigarettes ROS ROS ED Constitutional Constitutional ED: Denies chills, fever(s) or weight loss Eyes Eyes: Denies change in vision or diplopia ENT ENT ED: Denies ear pain, rhinorrhea or sore throat Cardiovascular Cardiovascular: Reports as per HPI and chest pain; Denies orthopnea, palpitations or racing heartbeat Respiratory/Chest Respiratory/Chest: Reports cough; Denies dyspnea or orthopnea Gastrointestinal Gastrointestinal: Denies abdominal pain, diarrhea, nausea or vomiting Genitourinary Genitourinary ED: Denies dysuria, hematuria or urinary frequency Musculoskeletal Musculoskeletal: Denies arthralgias or myalgias Integumentary Denies abscess or rash Neurologic Neurologic: Denies headache(s) or weakness Psychiatric Psychiatric: Denies anxiety, depression, suicidal ideation or suicidal thoughts Endocrine Endocrinology: Denies polydipsia, polyphagia or polyuria Allergic/Immunologic Allergic/Immunologic ED: Denies mouth swelling, tongue swelling or urticaria EXAM Physical Exam Const Vital Signs: 04/03/24 10:24 Temperature 97.4 F L Temperature Source Temporal Pulse Rate 97 Respiratory Rate 16 Blood Pressure 132/68 H Blood Pressure Mean 89 Pulse Ox 99 Oxygen Delivery Method Room Air Positive well nourished and well developed General Appearance ED: well developed HEENT Reports normocephalic, head/scalp atraumatic and moist mucous membranes Eyes PERRL and EOMs intact bilaterally Neck no lymphadenopathy, supple and no JVD Chest Wall Chest Narrative: Mild tenderness to palpation along the left mid anterior and posterior ribs mild tenderness along the manubrium and the costochondral border. Pain is worse when he moves his arms particularly bringing his left arm up behind his head. Resp normal respiratory effort and clear to auscultation bilaterally Cardio regular rate, regular rhythm and no murmurs GI normal to inspection, nondistended, normoactive bowel sounds and non-tender Palpation: soft Back/Spine no CVA tenderness and normal ROM Extremity normal to inspection General Extremety ED: Negative for edema General Extremity: Negative for edema Neuro oriented x3 and CN's II-XII intact bilaterally Sensorium / Orientation: alert Motor Exam: strength 5/5 throughout Psych mental status grossly normal Mood & Affect: Negative for depressed or tearful Skin no rashes or lesions noted and no wounds MDM [facility] History & Record Review Discussion w/independent historian: Patient EKG Initial EKG: Attestation: I personally reviewed and interpreted this EKG as follows: Comments: Sinus bradycardia with a ventricular rate of 58 bpm. Discharge Plan Triage Chief Complaint: Chest Pain ED Provider: Colt Condon Dx/Rx/DC Orders Prescriptions: No Action omeprazole 20 mg tablet,delayed release (DR/EC) 20 mg PO DAILY Qty: 60 0RF sucralfate [Carafate] 1 gram tablet 1 g PO QACHS Qty: 90 0RF ondansetron 4 mg tablet,disintegrating 4 mg PO Q6H PRN PRN (Reason: Nausea) Qty: 10 0RF naproxen 500 mg tablet 500 mg PO BID PRN (Reason: Abdominal Pain) Qty: 20 0RF Primary Care Provider: Care Physician,No Primary Referrals: Care Physician,No Primary [Primary Care Provider] - Print Language: Khmer
--- NOTE | 2024-04-03 10:36 | EKG12_ITS ---
Test Reason : CP Blood Pressure : */* mmHG Vent. Rate : 58 BPM Atrial Rate : 58 BPM P-R Int : 174 ms QRS Dur : 98 ms QT Int : 396 ms P-R-T Axes : 33 48 52 degrees QTcB Int : 388 ms Sinus bradycardia with sinus arrhythmia Otherwise normal ECG Confirmed by ANDRE STEINER, GREGORIA ([id number]), senior editor MACI ODELL ([id number]) on 04/04/2024 10:57:11 AM Referred By: Confirmed By: GREGORIA POWELL MD
--- NOTE | 2024-04-03 10:52 | RAD_ITS ---
STUDY: X-RAY CHEST REASON FOR EXAM: Male, 28 years old. chest pain TECHNIQUE: Single AP portable view of the chest. COMPARISON: 09/15/2022 FINDINGS: The lungs are clear and expanded. There is no demonstrated pleural abnormality. Normal size heart. Normal mediastinum and brenda. Normal visualized pulmonary arteries. Normal visualized aortic arch and descending thoracic aorta. Normal visualized thoracic spine. Normal visualized ribs, clavicles, and shoulders. There is no demonstrated abnormality of the visualized soft tissue structures of the upper abdomen. RAD/Chest 1 View (Portable) IMPRESSION: Normal x-ray examination of the chest. Electronically Signed: Bernard Campbell MD at 11:04 [facility] ,
[2024-04-03] MEDS: Aspirin 81 MG TAB.CHEW 324 MG PO (10:53)
[2024-04-03 10:54] LABS: Absolute Lymphocyte Count 2.81 X10^3/uL (0.83-4.51); Absolute Neutrophil Count 4.8 X10^3/uL (2.0-7.7); Basophil# 0.08 X10^3/uL; Basophil% 0.9 % (0-1); Eosinophil# 0.21 X10^3/uL; Eosinophils% 2.5 % (0-5); Hematocrit 43.1 % (40-54); Hemoglobin 14.9 g/dL (13.0-16.5); Lymphocyte # 2.81 X10^3/ul (0.83-4.51); Mean Corp Hgb Conc 34.6 g/dL (32-36); Mean Corpuscular Volume 83.9 fL (80-94); Mean Platelet Vol. 9.2 fl (6.2-12.0); Monocyte# 0.61 X10^3/uL; Monocyte% 7.2 % (0-10); NRBC Flagged by Analyzer 0 % (0-5); Neutrophil # 4.76 X10^3/uL (2.7-7.7); Neutrophil % 55.8 % (47-70); Platelet Count 304 K/mm3 (150-450); RBC Distribution Width CV 11.9 % (11.6-14.6); RBC Distribution Width SD 36.5 fl (35.1-43.9); Red Blood Count 5.14 M/mm3 (4.6-6.2); White Blood Count 8.5 K/mm3 (4.4-11.0)
[2024-04-03 11:12] LABS: D-Dimer Quantitative (DVT/PE) < 0.27 FEU/ug/m (0.27-0.49)
[2024-04-03 11:14] LABS: Anion Gap 4 (5-15); BUN 9 mg/dL (7-18); BUN/Creat Ratio 8.7 RATIO (10-20); Calcium,Total 9.4 mg/dL (8.5-10.1); Chloride 108 mmol/L (98-107); Creatinine, Serum 1.04 mg/dL (0.70-1.30); EST Glomerular Filtration Rate 91 mL/min (>60); Est Glom Filt Rate - Afr Amer 110 mL/min (>60); Estimated Creatinine Clearance 137.07 ml/min; Glucose 98 mg/dL (74-106); Potassium 3.7 mmol/L (3.5-5.1); Sodium Level 140 mmol/L (136-145); Troponin-I HS 6 pg/mL (3.0-78.0)
[2024-04-03] MEDS: Ketorolac 30 MG/ML Syringe IV (11:41)
[2024-04-03 11:42] VITALS: BP 124/78; PULSE 60; RESP 18; TEMP 36.6; O2SAT 99
== END 2024-04-03 11:47 | disposition home or self-care (01) ==
PROVIDERS: Emergency Provider Emergency Medicine; Visit Provider Emergency Medicine
DX: R07.9 Chest pain, unspecified (principal); M54.9 Dorsalgia, unspecified; F17.210 Nicotine dependence, cigarettes, uncomplicated; R05.3 Chronic cough
CPT/HCPCS: 71045; 80048; 84484; 85025; 85379; 93005; 96374; 99284

== ENCOUNTER 2024-08-05 12:15 | Emergency (ER) | payer MEDICAID, SELFPAY ==
[2024-08-05 12:16] VITALS: BP 149/80; PULSE 68; RESP 18; TEMP 36.7; O2SAT 99; BMI 33.2
--- NOTE | 2024-08-05 12:52 | EKG12_ITS ---
Test Reason : DIZZY Blood Pressure : */* mmHG Vent. Rate : 54 BPM Atrial Rate : 54 BPM P-R Int : 156 ms QRS Dur : 102 ms QT Int : 406 ms P-R-T Axes : 26 34 38 degrees QTcB Int : 385 ms Sinus bradycardia Otherwise normal ECG Confirmed by ANDRE STEINER, GREGORIA ([id number]), supervising editor trailer JORDY NGUYEN ([id number]) on 08/07/2024 8:18:37 AM Referred By: Colt Condon Confirmed By: GREGORIA POWELL MD
--- NOTE | 2024-08-05 12:53 | CT_ITS ---
PROCEDURE: ABDOMEN/PELVIS W IV CONT ONLY 08/05/2024 REASON FOR EXAM: ABDOMINAL PAIN Right upper quadrant pain. TECHNIQUE: Abdomen and pelvis CT with intravenous contrast. Coronal and Sagittal reconstruction series were provided. PATIENT PREPARATION: Per protocol ORAL CONTRAST TYPE: None. CONTRAST: Isovue-300 VOLUME: 100 mL One or more dose reduction techniques were used (e.g., Automated exposure control, adjustment of the mA and/or kV according to patient size, use of iterative reconstruction technique. RADIATION DOSE SUMMARY: CTDlvol: 16.1 mGy DLP: 1223.69 mGycm COMPARISON: None FINDINGS: Lung bases: Unremarkable Liver: Normal size. No mass. Gallbladder: Unremarkable Spleen: Normal size. Pancreas: Normal size without evidence of mass surrounding inflammation or ductal dilation. Adrenals: Unremarkable. Kidneys: Normal renal sizes. No hydronephrosis. Bladder: Unremarkable Bowel: Scattered sigmoid diverticula. Appendix: Unremarkable Lymph nodes: Unremarkable. Vasculature: The abdominal aorta and IVC are normal. Peritoneum / Retroperitoneum: Unremarkable. Bones: Straightening of the normal lumbar lordosis. CT/Abdomen/Pelvis W IV Cont ONLY IMPRESSION: UNREMARKABLE CT OF THE ABDOMEN AND PELVIS Reading Location: [place] [id number]
[2024-08-05 13:12] LABS: Absolute Lymphocyte Count 2.09 X10^3/uL (0.83-4.51); Absolute Neutrophil Count 4.3 X10^3/uL (2.0-7.7); Basophil# 0.08 X10^3/uL; Basophil% 1.1 % (0-1); Eosinophil# 0.13 X10^3/uL; Eosinophils% 1.8 % (0-5); Hematocrit 41.6 % (40-54); Hemoglobin 14.5 g/dL (13.0-16.5); Lymphocyte # 2.09 X10^3/ul (0.83-4.51); Lymphocyte % 28.9 % (19-41); Mean Corp Hgb Conc 34.9 g/dL (32-36); Mean Corpuscular Hgb 29.5 pg (27.0-32.0); Mean Corpuscular Volume 84.6 fL (80-94); Mean Platelet Vol. 9.5 fl (6.2-12.0); Monocyte# 0.59 X10^3/uL; Monocyte% 8.2 % (0-10); NRBC Flagged by Analyzer 0 % (0-5); Neutrophil # 4.29 X10^3/uL (2.7-7.7); Neutrophil % 59.4 % (47-70); Platelet Count 280 K/mm3 (150-450); RBC Distribution Width SD 36.5 fl (35.1-43.9); Red Blood Count 4.92 M/mm3 (4.6-6.2); White Blood Count 7.2 K/mm3 (4.4-11.0)
[2024-08-05 13:21] LABS: Red Blood Cells-Urine 0 SEEN /hpf (0-5)
[2024-08-05 13:23] LABS: Color, Urine Yellow (Yellow); Glucose, Dipstick Normal (Normal); Ketone-Dipstick Negative (Negative); Leukocyte Esterase-Dipstick Negative /ul (Negative); Nitrite-Dipstick Negative (Negative); Occult Blood-Urine 10 /ul (Negative); Protein-Dipstick 15 mg/dl (Negative); Specific Gravity, Urine 1.015 (1.002-1.030); Urine Bilirubin Dipstick Negative (Negative); Urine Clarity Clear (Clear); Urine Urobilinogen Normal (Normal)
[2024-08-05 13:28] LABS: Bacteria 1+ /hpf (None Seen); Mucous, Urine 1+ /hpf (<or=2+); Squamous Epithelial Cells - UA 0-5 SEEN /hpf (0-5); White Blood Cells 0-5 SEEN /hpf (0-5)
[2024-08-05 13:45] LABS: AST(SGOT) 30 U/L (<=37); Alanine Aminotransfer ALT/SGPT 67 U/L (<=46); Albumin, Serum 4.7 g/dL (3.5-5.0); Alkaline Phosphatase 74 U/L (40-129); Anion Gap 10 (5-15); BUN 9 mg/dL (4-19); BUN/Creat Ratio 8.9 RATIO (10-20); Bilirubin, Direct 0.22 mg/dL (0.00-0.30); Calcium,Total 9.8 mg/dL (7.6-11.0); Chloride 104 mmol/L (98-108); Creatinine, Serum 0.98 mg/dL (0.70-1.20); EST Glomerular Filtration Rate 108 (>60); Estimated Creatinine Clearance 144.49 ml/min (50-250); Glucose 91 mg/dL (70-99); Lipase 35 U/L (13-75); Potassium 3.8 mmol/L (3.3-5.1); Protein, Total 7.7 g/dL (5.9-8.4); Sodium Level 139 mmol/L (133-145)
[2024-08-05 14:00] VITALS: BP 124/65; PULSE 89; RESP 18; TEMP 36.6; O2SAT 99
--- NOTE | 2024-08-05 14:16 | EDS_ITS ---
HPI History of Present Illness Chief Complaint: Abd Pain Informant: patient Narrative Narrative: 29-year-old male presenting to the emergency room with abdominal pain and syncope. Patient states that last year he was being evaluated by surgery for possible gallbladder disease. Review of his chart shows that he has had an ultrasound which showed a thickened gallbladder wall and had a abnormal HIDA scan. States that he was trying not to have to have surgery for financial/insurance reasons. He states that yesterday he ate more meat than what he typically does. States that he laid down in bed and got a pain on the right side of his abdomen that was severe and he got up to try to go to the bathroom when he passed out. He states he does not recall the rest. He wonders if this is anything to do with a 20 to 30-minute episode he had several weeks ago he was on the floor shaking. He states that he did not have amnesia of that event. He denies any vomiting or diarrhea. No fevers. He notes for the past several days he has had very dark urine to where he can see the color and go towards the bottom of the bowl wonders if this could be blood. No prior history of kidney stones. [facility] Medical History Abnormal ultrasound of abdomen Home Medications ?Medication ?Instructions ?Recorded ?Last Taken ?Type naproxen 500 mg tablet 500 mg PO BID PRN Abdominal Pain 10/12/23 Unknown Rx #20 tabs ondansetron 4 mg disintegrating 4 mg PO Q6H PRN PRN Na usea #10 tabs 10/12/23 Unknown Rx tablet omeprazole 20 mg tablet,delayed 20 mg PO DAILY #60 tab s 11/06/23 Unknown Rx release sucralfate 1 gram tablet (Carafate) 1 g PO QACHS #90 t abs 11/06/23 Unknown Rx Allergy/AdvReac Type Severity Reaction Status Date / Time No Known Allergies Allergy Verified 08/05/24 12:16 Family History Grandfather Heart disease Grandmother Breast cancer Cancer Social History Smoking Status: Current every day smoker tobacco type: cigarettes ROS ROS ED Constitutional Constitutional ED: Denies chills, fever(s) or weight loss Eyes Eyes: Denies change in vision or diplopia ENT ENT ED: Denies ear pain, rhinorrhea or sore throat Cardiovascular Cardiovascular: Denies chest pain, orthopnea, palpitations or racing heartbeat Respiratory/Chest Respiratory/Chest: Reports other Details: Syncope ; Denies cough, dyspnea or orthopnea Gastrointestinal Gastrointestinal: Reports abdominal pain; Denies diarrhea, nausea or vomiting Genitourinary Genitourinary ED: Denies dysuria, hematuria or urinary frequency Musculoskeletal Musculoskeletal: Denies arthralgias or myalgias Integumentary Denies abscess or rash Neurologic Neurologic: Denies headache(s) or weakness Psychiatric Psychiatric: Denies anxiety, depression, suicidal ideation or suicidal thoughts Endocrine Endocrinology: Denies polydipsia, polyphagia or polyuria Allergic/Immunologic Allergic/Immunologic ED: Denies mouth swelling, tongue swelling or urticaria EXAM Physical Exam Const Vital Signs: 08/05/24 12:16 08/05/24 14:00 Temperature 98.1 F 98 F Temperature Source Temporal Pulse Rate 68 89 Respiratory Rate 18 18 Blood Pressure 149/80 H 124/65 H Blood Pressure Mean 103 84 Pulse Ox 99 99 Oxygen Delivery Method Room Air Positive well nourished and well developed General Appearance ED: well developed HEENT Reports normocephalic, head/scalp atraumatic and moist mucous membranes Eyes PERRL and EOMs intact bilaterally Neck no lymphadenopathy, supple and no JVD Resp normal respiratory effort and clear to auscultation bilaterally Cardio regular rate, regular rhythm and no murmurs GI normal to inspection, nondistended, normoactive bowel sounds and non-tender Palpation: soft Back/Spine no CVA tenderness and normal ROM Extremity normal to inspection General Extremety ED: Negative for edema General Extremity: Negative for edema Neuro oriented x3 and CN's II-XII intact bilaterally Sensorium / Orientation: alert Motor Exam: strength 5/5 throughout Psych mental status grossly normal Mood & Affect: anxious; Negative for depressed or tearful Skin no rashes or lesions noted and no wounds MDM MDM MDM Narrative Medical decision making narrative: Differential diagnosis includes acute cholecystitis, pancreatitis, vasovagal syncope dehydration liver dysfunction acute kidney injury hematuria Patient's EKG is a sinus bradycardia rate of [address] features. White count 7.2 hemoglobin 14.5 normal BMP LFTs show an ALT of 67 lipase is 35 urinalysis no overt infection or hematuria. CT abdomen pelvis with IV contrast was obtained which is negative for acute findings. At this point would encourage the patient to follow-up with surgery to discuss his continued abdominal symptoms. We also recommend establishing primary care to discuss the shaking episode. Syncope further. Patient is comfortable with this plan. History & Record Review Discussion w/independent historian: Patient Additional record(s) reviewed:: Prior outpatient record, Prior ED visit and Prior labs Lab Data Attestation: I reviewed the patient's lab results. Labs: Laboratory Results - last 24 hr 08/05/24 08/05/24 12:24 13:08 WBC 7.2 RBC 4.92 Hgb 14.5 Hct 41.6 MCV 84.6 MCH 29.5 MCHC 34.9 RDW Std Deviation 36.5 RDW Coeff of Cyrus 12.0 Plt Count 280 MPV 9.5 Immature Gran % (Auto) 0.600 Neut % (Auto) 59.4 Lymph % (Auto) 28.9 [place] % (Auto) 8.2 Eos % (Auto) 1.8 Baso % (Auto) 1.1 H Absolute Neuts (auto) 4.3 Absolute Lymphs (auto) 2.09 Nucleated RBC % 0 Sodium 139 Potassium 3.8 Chloride 104 Carbon Dioxide 24.0 Anion Gap 10 BUN 9 Creatinine 0.98 Estim Creat Clear Calc 144.49 Est GFR (MDRD) Non-Af 108 BUN/Creatinine Ratio 8.9 L Glucose 91 Calcium 9.8 Total Bilirubin 0.70 Direct Bilirubin 0.22 AST 30 ALT 67 H Alkaline Phosphatase 74 Total Protein 7.7 Albumin 4.7 Globulin 3.0 Lipase 35 Urine Color Yellow Urine Clarity Clear Urine pH 6.0 Ur Specific [place] 1.015 Urine Protein 15 H Urine Glucose (UA) Normal Urine Ketones Negative Urine Occult Blood 10 H Urine Nitrite Negative Urine Bilirubin Negative Urine Urobilinogen Normal Ur Leukocyte Esterase Negative Urine RBC 0 SEEN Urine WBC 0-5 SEEN Ur Squamous Epith Cells 0-5 SEEN Urine Bacteria 1+ Urine Mucus 1+ Radiography Diagnostic Testing: Clinical Impression(s) from Imaging Studies Abdomen/Pelvis CT 08/05/24 12:53 IMPRESSION: UNREMARKABLE CT OF THE ABDOMEN AND PELVIS Reading Location: [facility] EKG Initial EKG: Attestation: I personally reviewed and interpreted this EKG as follows: Comments: Sinus bradycardia ventricular rate of 54 bpm Discharge Plan Triage Chief Complaint: Abd Pain ED Provider: Colt Condon Dx/Rx/DC Orders Clinical Impression: Syncope and collapse, Abdominal pain Instructions: What Is Syncope Prescriptions: No Action omeprazole 20 mg tablet,delayed release (DR/EC) 20 mg PO DAILY Qty: 60 0RF sucralfate [Carafate] 1 gram tablet 1 g PO QACHS Qty: 90 0RF ondansetron 4 mg tablet,disintegrating 4 mg PO Q6H PRN PRN (Reason: Nausea) Qty: 10 0RF naproxen 500 mg tablet 500 mg PO BID PRN (Reason: Abdominal Pain) Qty: 20 0RF Primary Care Provider: Care Physician,No Primary Referrals: Phoenix Méndez MD [Med Staff - Registered Nurse Ambulatory] - As soon as possible (for primary care or PCP of your choice ) Con Hoyt MD [Med Staff - Active Staff] - (If needed for surgery.) Care Physician,No Primary [Primary Care Provider] - Activity Restrictions/Additional Instructions: I would strongly recommend that you follow-up with general surgery regarding your concerns for the gallbladder. You may follow-up with the surgeon you were previously being seen by or with Dr. Hoyt above. I also would strongly recommend that you follow-up with primary care to discuss your passing out shaking events. Print Language: Marshallese Disposition Disposition: Home, Self Care
== END 2024-08-05 14:20 | disposition home or self-care (01) ==
PROVIDERS: Emergency Provider Emergency Medicine; Referring Provider Emergency Medicine; Visit Provider Emergency Medicine
DX: R10.9 Unspecified abdominal pain (principal); R55 Syncope and collapse; F17.210 Nicotine dependence, cigarettes, uncomplicated
CPT/HCPCS: 74177; 80048; 80076; 81001; 83690; 85025; 93005; 99283; Q9967; A4216